=== PATIENT | female | born 1995 | race Caucasian/White ===

== ENCOUNTER 2025-09-21 09:36 | Emergency (ER) | payer MEDICAID ==
[~2025-09-21] VITALS: Ht 170.2 cm; Wt 63.5 kg
[2025-09-21 10:30] LABS: APPEARANCE,URINE CLEAR (CLEAR); BLOOD, URINE 2+ Ery/uL (NEGATIVE); LEUKOCYTE ESTERASE ,URINE 2+ (NEGATIVE); NITRITE, URINE POSITIVE (NEGATIVE); UGLUCOSE 1+ mg/dL (NEGATIVE)
[2025-09-21] MEDS ORDERED: CEPH-570 PO (10:33)
[2025-09-21 10:37] LABS: ADD URINE CULTURE YES
[2025-09-21 11:03] LABS: PREGNANCY TEST URINE QUAL NEGATIVE (NEGATIVE)
[2025-09-21 11:16] VITALS: BP 115/74; TEMP 98.1; O2SAT 99
== END 2025-09-21 11:19 | disposition home or self-care (01) ==
LOC: ER 10:08
DX: N30.01 Acute cystitis with hematuria (principal)
CPT/HCPCS: 81001; 84703-TC; 87086-TC; 87186-TC